=== PATIENT | male | born 1960 | race Hispanic/Latino ===

== ENCOUNTER 2019-06-07 08:25 | Day surgery (SDC) | payer OTHER ==
[2019-06-04 11:28] LABS: BASOPHILS % (AUTO) 0.4 % (0.0-5.0); HEMATOCRIT 44.2 % (42-54); LYMPHOCYTES % (AUTO) 28.6 % (21.0-51.0); MEAN CORPUSCULAR HEMOGLOBIN 29.7 pg (27.0-33.0); MEAN CORPUSCULAR HGB CONC 33.2 g/dL (32.0-36.0); MEAN CORPUSCULAR VOLUME 89.3 fL (79-99); MONOCYTES % (AUTO) 7.9 % (3.0-13.0); NEUTROPHILS % (AUTO) 61.1 % (40.0-77.0); PLATELET COUNT (AUTO) 249 K/uL (130-400); RED BLOOD CELL COUNT(AUTO) 4.95 MIL/uL (4.50-6.20); WHITE BLOOD COUNT (AUTO) 7.2 K/uL (4.8-10.8)
[2019-06-04 11:41] LABS: CREATININE 1.1 mg/dL (0.5-1.5); POTASSIUM 4.2 mmol/L (3.5-5.1)
[2019-06-04 11:58] VITALS: BP 103/69
[~2019-06-07] VITALS: Ht 172.7 cm; Wt 78.5 kg
[2019-06-07] VITALS (18 sets, daily range): BP systolic 119–146; BP diastolic 74–98
[~2019-06-07 08:25] MED LIST: EMPA25TA PO; LACTATED RINGERS 1000ML 1,000 ML IV SCH; LISI10TA7 PO
--- NOTE | 2019-06-07 09:15 | NUR ---
POTENTIAL FOR INFECTION: SHAVED RIGHT LEG / RT KNEE PER EM VELAZQUEZ, FOLLOWED BY WIPING WITH KAVON: 2% CHLORHEXIDINE GLUCONATE CLOTH PATIENTS PRE-OP SKIN PREP.
[2019-06-07] MEDS: CEFAZOLIN SODIUM 1 GM VIAL IVP SCH ×2 (09:30→10:05)
[2019-06-07] MEDS ORDERED: SODIUM CHLORIDE 0.9% 1000ML 1,000 ML IV ONE (09:36)
[2019-06-07] MEDS ORDERED: SUCCINYLCHOLINE 200MG/10ML SYR ONE (09:49)
[2019-06-07] MEDS ORDERED: MIDAZOLAM HCL 1 MG/ML 2ML VIAL ONE (09:49)
[2019-06-07] MEDS ORDERED: GLYCOPYRROLATE 1 MG/5 ML SYRINGE ONE (09:49)
[2019-06-07] MEDS ORDERED: DEXAMETHASONE SOD PHOSPHATE 10MG/ML 1ML VIAL ONE (09:49)
[2019-06-07] MEDS ORDERED: LIDOCAINE PF 2% 5ML ABBOJECT ONE ×2 (09:49→09:50)
[2019-06-07] MEDS ORDERED: FENTANYL CITRATE PF 50 MCG/1 ML 2ML VIAL ONE (09:50)
[2019-06-07] MEDS ORDERED: NEOSTIGMINE 5MG/5ML SYR IV ONE (09:50)
[2019-06-07] MEDS ORDERED: ONDANSETRON HCL 4 MG/2 ML VIAL ONE (09:50)
[2019-06-07] MEDS ORDERED: PROPOFOL 10 MG/ML 20ML VIAL IV ONE (09:50)
[2019-06-07] MEDS ORDERED: ROCURONIUM 10MG/1ML SYR 10 MG/ML ML ONE (09:50)
[2019-06-07] MEDS ORDERED: BUPIVACAINE/EPI/PF 0.5% 30ML VIAL IJ ONE (10:03)
--- NOTE | 2019-06-07 12:07 | NUR ---
POST OP RECEIVED PT FROM PACU, S/P RIGHT KNEE ARTHROSCOPY DRESSING TO SITE DRY AND INTACT, NEUROVASCULAR CHECKS WNL. PT AWAKE AND ALERT IN BED,NO DISTRESS NOTED. DENIED ANY PAIN OR DISCOMFORTS. VS STABLE ON ARRIVAL. CALL LIGHT WITHIN REACH . SPOUSE AT BEDSIDE
--- NOTE | 2019-06-07 12:55 | NUR ---
dc pt dc home via [place] ,no distress noted. pt denies any pain or discomforts. accompanied by spouse, right knee dressing dry and intact, crutches provided for patient
== END 2019-06-07 12:55 | disposition home or self-care (01) ==
LOC: DAH 08:25
PROVIDERS: ATTEND Orthopaedic Surgery
DX: M23.221 Derangement of posterior horn of medial meniscus due to old tear or injury, right knee (principal); M94.261 Chondromalacia, right knee; M67.261 Synovial hypertrophy, not elsewhere classified, right lower leg; I10 Essential (primary) hypertension; Z83.3 Family history of diabetes mellitus; Z79.899 Other long term (current) drug therapy
CPT/HCPCS: 29882; 36415; 80048; 82948 ×2; 85025; A4215; A4221; A4222; A4223; A4606; A4649 ×3; A4663; A4930; A5120; A6223; A6260; C1713; C1776; J0330; J0690; J1100; J2001 ×2; J2250; J2405; J2704; J2710; J3010; J3490 ×2; J7030; J7120